=== PATIENT | male | born 1980 | race Two or more races ===

== ENCOUNTER 2022-07-06 19:30 | Emergency (ER) | payer BC, MEDICAID ==
[~2022-07-06] VITALS: Ht 177.8 cm; Wt 81.0 kg
[2022-07-06] MEDS ORDERED: LIDOCAINE 2%HCL (LOCAL ANESTH.) INJ 10ml MDV IJ ONE (23:15)
[2022-07-07 02:08] VITALS: BP 146/91
[2022-07-07] MEDS ORDERED: ACETAMINOPHEN 325 MG TAB PO ONE (04:15)
[2022-07-07] MEDS ORDERED: AMOX500T86 PO (04:48)
[2022-07-07] MEDS ORDERED: ONDA-144 PO (04:48)
[2022-07-07] MEDS ORDERED: PERCOT PO (04:48)
== END 2022-07-07 05:00 | disposition home or self-care (01) ==
LOC: ER 19:30
DX: S01.112A Laceration without foreign body of left eyelid and periocular area, initial encounter (principal); G44.309 Post-traumatic headache, unspecified, not intractable; V49.9XXA Car occupant (driver) (passenger) injured in unspecified traffic accident, initial encounter; Y93.89 Activity, other specified; Y92.89 Other specified places as the place of occurrence of the external cause; Y99.8 Other external cause status
CPT/HCPCS: 70450; 70486; 72125